=== PATIENT | female | born 1965 | race Caucasian/White ===

== ENCOUNTER 2018-03-18 07:20 | Emergency (ER) | payer BC ==
[~2018-03-18] VITALS: Ht 167.6 cm; Wt 77.1 kg
[~2018-03-18 07:20] MED LIST: FIORICET1 TAB PO
[2018-03-18 07:26] VITALS: Ht 167.6 cm; Wt 77.1 kg
[2018-03-18 09:13] VITALS: BP 123/83
== END 2018-03-18 09:13 | disposition home or self-care (01) ==
LOC: ED 07:20
DX: H60.503 Unspecified acute noninfective otitis externa, bilateral (principal); R20.0 Anesthesia of skin; J45.909 Unspecified asthma, uncomplicated; Z88.5 Allergy status to narcotic agent; Z88.6 Allergy status to analgesic agent

== ENCOUNTER 2020-09-21 21:54 | Emergency (ER) | payer BC ==
[~2020-09-21] VITALS: Ht 167.6 cm; Wt 79.4 kg
[2020-09-21 21:59] VITALS: Ht 167.6 cm; Wt 79.4 kg
[2020-09-22 00:56] VITALS: BP 126/87
== END 2020-09-22 00:56 | disposition home or self-care (01) ==
LOC: ED 21:54
DX: U07.1 COVID-19 (principal); J45.909 Unspecified asthma, uncomplicated; Z88.5 Allergy status to narcotic agent; Z88.6 Allergy status to analgesic agent
CPT/HCPCS: J8597; Q0162